=== PATIENT | female | born 1970 | race Two or more races ===

== ENCOUNTER 2019-04-21 19:34 | Emergency (ER) | payer MEDICAID, OTHER ==
[~2019-04-21] VITALS: Ht 157.5 cm; Wt 78.0 kg
[2019-04-21 19:57] VITALS: BP 139/66
[2019-04-22] MEDS ORDERED: IBUPROFEN 800 MG TAB PO ONE (01:30)
== END 2019-04-22 01:54 | disposition home or self-care (01) ==
LOC: ER 19:37
DX: S83.92XA Sprain of unspecified site of left knee, initial encounter (principal); M54.5 Low back pain; M53.3 Sacrococcygeal disorders, not elsewhere classified; R51 Headache; M54.2 Cervicalgia; Z90.710 Acquired absence of both cervix and uterus; W01.0XXA Fall on same level from slipping, tripping and stumbling without subsequent striking against object, initial encounter; Y93.89 Activity, other specified; Y92.89 Other specified places as the place of occurrence of the external cause; Y99.8 Other external cause status
CPT/HCPCS: 72100; 72220; 73562